=== PATIENT | female | born 1985 ===

== ENCOUNTER 2020-08-26 07:58 | Outpatient (REF) | payer OTHER, SELFPAY ==
[2020-08-27 09:05] LABS: BV Int Neg Control Negative (Negative); BV Int Pos Control Positive (Positive)
[2020-08-27 12:46] LABS: C. trachomatis RNA TMA NOT DETECTED (NOT DETECTED); N. gonorrhoeae RNA TMA NOT DETECTED (NOT DETECTED)
== END 2020-08-26 07:59 | disposition home or self-care (01) ==
LOC: HO.LAB 07:58
PROVIDERS: Visit Provider Obstetrics & Gynecology
DX: Z01.419 Encounter for gynecological examination (general) (routine) without abnormal findings (principal); N76.0 Acute vaginitis; B37.3 Candidiasis of vulva and vagina; B96.89 Other specified bacterial agents as the cause of diseases classified elsewhere; G43.109 Migraine with aura, not intractable, without status migrainosus; F07.81 Postconcussional syndrome; Z88.0 Allergy status to penicillin
CPT/HCPCS: 36415; 87480; 87491; 87510; 87591; 87660

== ENCOUNTER 2021-04-28 13:44 | Outpatient (REF) | payer OTHER, SELFPAY ==
--- NOTE | ~2021-04-28 | US_ITS ---
EXAMINATION: US PELVIC AND TRANSVAGINAL CLINICAL INFORMATION: Overactive bladder. Dyspareunia. COMPARISON: CT abdomen/pelvis dated 03/28/2019 and pelvic ultrasound dated 02/16/2018. TECHNIQUE: Ultrasound of the pelvis is performed using both transabdominal and transvaginal transducers along with Doppler. Transvaginal imaging is performed due to inadequate visualization transabdominally. FINDINGS: Uterus: The uterus is anteverted and measures 7 x 3.6 x 5.2 cm. The double wall endometrial thickness is 1.0 mm. The uterus is smooth in contour and has normal myometrial echogenicity. No visible fibroid. Adnexa: Both ovaries are visualized. There is normal color flow to the adnexa. There is no ovarian torsion. There is no pelvic ascites or fluid collection. Right ovary measures 3.1 x 2.2 x 3.2 cm. Right ovarian volume of 11.3 mL. Left ovary measures 5.2 x 2.6 x 2.2 cm. Left ovarian volume of 15.6 mL. Probable left ovarian corpus luteum measuring 2.3 x 2 x 2.4 cm. Exophytic simple-appearing cyst versus dominant follicle measuring 1.5 x 1.5 x 1.4 cm. US/US pelvic and transvaginal IMPRESSION: 1. Left ovarian exophytic dominant follicle versus simple cyst measuring 2.4 cm. Left ovarian probable corpus luteum measuring 2.4 cm. 2. Sonographically unremarkable uterus, endometrium, and right ovary.
== END 2021-04-28 13:45 | disposition home or self-care (01) ==
LOC: HO.HMGCX 13:44
PROVIDERS: PCP Registered Nurse; Visit Provider Urology
DX: N32.81 Overactive bladder (principal); R39.89 Other symptoms and signs involving the genitourinary system; N94.10 Unspecified dyspareunia
CPT/HCPCS: 76830; 76856